=== PATIENT | female | born 1995 | race Caucasian/White ===

== ENCOUNTER 2019-11-19 08:28 | Emergency (ER) | payer OTHER ==
--- OUTSIDE RECORDS SUMMARY | 2019-11-19 08:43 | XMS REPORT | Continuity of Care Document ---
:1995 External Reference #:[id number] Author Name Donavon Magdaleno MD Address [address] [place] [address] Problems Active Problems Provider Date Left lower quadrant pain Donavon Magdaleno MD Onset: 11/16/2019 Deep pain on intercourse Donavon Magdaleno MD Onset: 11/16/2019 Social History Type Date Description Comments Sex Unknown Tobacco Use Start: Unknown Never Smoked Cigarettes ETOH Use Occasionally consumes alcohol Recreational Drug Use Denies Drug Use Tobacco Use Start: Unknown Patient has never smoked Smoking Status Reviewed: 11/16/19 Patient has never smoked Exercise Type/Frequency Exercises regularly Seat Belt/Car Seat Always uses seat belt Allergies, Adverse Reactions, Alerts Description No Known Drug Allergies Medications Active Medications SIG Qnty Indications Ordering Provider Date Nortrel 0.5/35 (28) by mouth every 3mo Po Hernandez JR, DO 09/05/2019 day 0.5-35mg-mcg Tablets Immunizations Description No Information Available Vital Signs Date Vital Result Comment 11/16/2019 3:33pm BP Systolic 140 mmHg BP Diastolic 98 mmHg Height 67 inches 5'7" Weight 137.00 lb BMI (Body Mass Index) 21.5 kg/m2 1 Parity 0 09/05/2019 8:22am BP Systolic 128 mmHg BP Diastolic 80 mmHg Height 67 inches 5'7" Weight 143.00 lb BMI (Body Mass Index) 22.4 kg/m2 Last Menstrual Period [id number] 1 Parity 0 Results Test Acquired Date Facility Test Result H/L Range Note Laboratory test 09/05/2019 [facility] Cytology SEE RESULT [address] [place] [address] BELOW [phone] 1 SEE RESULT BELOW Name: SENIA HERNANDEZ : [address]: Po Hernandez DO Acct: [id number] Unit: [id number] AGE: 24 Location: [facility] Re09/05/19 SEX: F Status: REG REF SPEC: [id number] JORGE: 09/05/1952 [facility] [address]: Po Hernandez DO REQ: [id number] RECD: 09/05/19 STATUS: SOUT _ ORDERED: TP IMAGE ANALYS COMMENTS: [id number] FINAL DIAGNOSIS Negative for Intraepithelial lesion or Malignancy SPECIMEN(S) RECEIVED A. Ectocervical/Endocervical CYTOLOGY ADEQUACY Specimen Adequacy: Satisfactory of evaluation Transformation zone component identified CYTOLOGY PATIENT INFORMATION Patient Information: HPV: Thin Layer Pap Test w/reflex to high risk HPV RNA testing when ASCUS Actual Specimen Date: 09/05/19 Last Menstrual Date: 08/06/19 Spec Date if unknown: 2014 Signed by and Reported on: ANANYA Howard (ASCP) 1458 This Pap test was evaluated with the assistance of the DoubleVerifyp Test Imaging System. Due to cytologic findings at the car distributor microscope, comprehensive manual rescreening by a Briquette Maker may be required. The Pap Smear is a screening test designed to aid in the detection of premalignant and malignant conditions of the uterine cervix. It is not a diagnostic procedure and should not be used as the sole means of detecting cervical cancer. Both false- positive and false- negative reports do occur. Depending on your risk status, a Pap smear should be obtained and evaluated every 1-3 years. END OF REPORT DEPARTMENT OF PATHOLOGY, [address] [place] [address] Duy Zuniga M.D. 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 Functional Status Description No Information Available Mental Status Description No Information Available Referrals Description No Information Available
[2019-11-19 08:56] VITALS: BP 124/78
--- NOTE | 2019-11-19 09:11 | UC ---
Lower Extremity/Ankle HPI - HPI Summary HPI Summary: 24-year-old woman comes in with a chief complaint of left ankle foot pain. Yesterday while she was running 2 pole vault on one step she had sudden onset of pain in the medial aspect of the left ankle and foot. Pain continues and it' s primarily in the medial aspect in the area of the navicular bone. Weightbearing makes it worse. She has been using eyes anti-inflammatories without overall relief. She has had multiple ankle sprains in the past. - History of Current Complaint Chief Complaint: UCLowerExtremity Stated Complaint: LEFT FOOT INJURY Time Seen by Provider: 11/19/19 08:51 Hx Last Menstrual Period: does not have reg periods, last one was 08/21 Pain Intensity: 7 - Allergies/Home Medications Allergies/Adverse Reactions: Allergies Allergy/AdvReac Type Severity Reaction Status Date / Time MS Gluten Meal [Gluten Meal] Allergy Intermediate reaction Verified 09/14/17 10: 38 varies gluten Allergy Unknown GI Upset Verified 11/19/19 08:47 Home Medications: Home Medications Ibuprofen TAB* [Advil TAB*] 400 mg PO Q6H PRN 11/19/19 [History Confirmed ] Norethindrone-Ethinyl Estrad [Nortrel 0.5/35 (28) 0.5-35 mg-Mcg] 1 tab PO DAILY 11/19/19 [History Confirmed 11/19/19] PMH/Surg Hx/FS Hx/Imm Hx Previously Healthy: Yes - Surgical History Surgical History: None - Family History Known Family History: Positive: Non-Contributory - Social History Alcohol Use: Occasionally Substance Use Type: None Smoking Status (MU): Never Smoked Tobacco Review of Systems All Other Systems Reviewed And Are Negative: Yes Constitutional: Positive: Negative Skin: Positive: Negative Eyes: Positive: Negative ENT: Positive: Negative Respiratory: Positive: Negative Cardiovascular: Positive: Negative Gastrointestinal: Positive: Negative Motor: Positive: Negative Neurovascular: Positive: Negative Musculoskeletal: Positive: Other: - see hpi Neurological/Mental Status: Positive: Negative Psychological: Positive: Negative Is Patient Immunocompromised?: No Physical Exam Triage Information Reviewed: Yes Appearance: Well-Appearing, No Pain Distress, Well-Nourished Vital Signs: Initial Vital Signs Temp 98.1 F 11/19/19 08:49 Pulse 66 02/17/20 08:49 Resp 16 11/19/19 08:49 BP 124/78 11/19/19 08:49 Pulse Ox 100 11/19/19 08:49 Vital Signs Reviewed: Yes Eye Exam: Normal Eyes: Positive: Conjunctiva Clear Neck: Positive: Supple Respiratory: Positive: No respiratory distress Musculoskeletal: Positive: Other: - Patient is tender to palpation medial aspect of the left midfoot. Lateral malleolus is nontender to palpation Achilles tendon is intact and nontender to palpation. Normal capillary refill. Normal sensation. There is a firm prominence over the navicular bone. Neurological: Positive: Alert Psychological: Positive: Age Appropriate Behavior Skin Exam: Normal Lower Extremity Course/Dx - Course Course Of Treatment: Machine Operator Transplanter: Katey Ward S, ([id number]) Director Vaccine: JUAN CARLOS (JUAN CARLOS) Report Date: 11/19/2019 09:44:00 Report Status: Final Start of Report Content Patient Name: CAMI HERNANDEZ Medical Record#: [id number] Ordering Physician: Jaden Felton MD Acct.#: [id number] : Age: 24 Sex: F Location: [facility] Exam Date: 11/19/19 0904 ADM Status: REG ER Order Information: FOOT LEFT 3+ VWS Accession Number: [id number] CPT: 79147 Indication: Left foot pain. 3 views of left foot demonstrates no fracture or dislocation. No other bone or joint abnormality is identified. IMPRESSION: No fracture of left foot is noted. <Electronically signed by Katey Ward MD in OV> 11/19/19940 Dictated By: Katey Ward MD Dictated Date/Time: 931 Transcribed Date/Time: 11/19/19931 Copy to: CC:No Primary Care Phys, NOPCP ; Jaden Felton MD Imaging - [facility] [id number] [place] [id number] [place] [address] ph ([phone]) ph ([phone]) ph ([phone]) ==== End of Report Content Machine Operator Transplanter: Katey Ward S, ([id number]) Director Vaccine: JUAN CARLOS, (NUANCE) Report Date: 11/19/2019 09:36:00 Report Status: Final Start of Report Content Patient Name: CAMI HERNANDEZ Medical Record#: [id number] Ordering Physician: Jaden Felton MD Acct.#: [id number] : Age: 24 Sex: F Location: [facility] Exam Date: 11/19/19903 ADM Status: REG ER Order Information: ANKLE LEFT 3+VWS Accession Number: [id number] CPT: 21253 Indication: Left ankle pain. 3 views of the left ankle demonstrates degenerative changes of the talocrural joint. No fracture is noted. No soft tissue swelling is noted. IMPRESSION: No fracture is noted. <Electronically signed by Katey Ward MD in OV> 11/19/19931 Dictated By: Katey Ward MD Dictated Date /Time: 11/19/19929 Transcribed Date/Time: 11/19/19929 Copy to: CC:No Primary Care Phys,NOPCP ; Jaden Felton MD Imaging - [facility] Imaging - [facility] Imaging - [facility] [address] [address] ph ([phone]) ph ([phone]) ph ([phone]) End of Report Content I discussed the x-rays with the patient. No fracture seen. I recommended ice anti-inflammatories and to minimize weightbearing. If not completely improved follow-up with orthopedics. I discussed the use of a cam boot if needed. Patient needed to leave clinic to get to work on time and did not receive any Logan wrap or cam boot here in our clinic. - Differential Dx/Diagnosis Provider Diagnosis: Sprain of left foot, Left ankle sprain Discharge ED - Sign-Out/Discharge Documenting (check all that apply): Patient Departure All imaging exams completed and their final reports reviewed: Yes - Discharge Plan Condition: Stable Disposition: HOME Patient Education Materials: Foot Sprain (ED), Ankle Sprain (ED) Referrals: Garth Parker MD [Medical Doctor] - [facility] [Provider Group] Additional Instructions: No fracture was seen on your left ankle and foot x-rays. He can protect the area and support it with an Logan wrap. Consider using a walking boot if helpful. Try to decrease weightbearing to level of comfort. Ice the area and elevate it. Use an anti-inflammatory. If not completely improved follow-up with orthopedics or sports medicine. - Billing Disposition and Condition Condition: STABLE Disposition: Home
== END 2019-11-19 09:50 | disposition home or self-care (01) ==
LOC: UCCORT 08:28
DX: S93.602A Unspecified sprain of left foot, initial encounter (principal); Z91.018 Allergy to other foods; X58.XXXA Exposure to other specified factors, initial encounter; Y93.02 Activity, running; Y92.9 Unspecified place or not applicable
CPT/HCPCS: 84702; 99211; G0463

== ENCOUNTER 2024-04-27 01:38 | Inpatient (IN) ==
[2024-04-27] MEDS ORDERED: Lidocaine 1% VIAL 10 MG/ML 30 ML VIAL INJ PRN (01:55)
[2024-04-27] MEDS ORDERED: Buffered Lidocaine 1% SYRIN 1 ml INTRADERM ONE (01:55)
[2024-04-27 02:47] LABS: ABS Basophils 0.1 10^3/uL (0.0-0.1); ABS Eosinophils 0.1 10^3/uL (0.0-0.5); ABS Lymphocytes 2.2 10^3/uL (1.0-4.8); ABS Monocytes 0.8 10^3/uL (0.0-0.9); ABS Neutrophils 8.9 10^3/uL (1.5-7.6); Eosinophil % 0.7 %; Hematocrit 39.4 % (35-45); Hemoglobin 13.6 g/dL (11.5-14.3); Lymphocyte % 18.5 %; Mean Corpuscular Hemoglobin 30.9 pg (27-33); Mean Corpuscular Hgb Conc 34.6 g/dL (31-36); Mean Corpuscular Volume 89.5 fL (80-97); Mean Platelet Volume 8.2 fL (7.5-11.2); Platelet Count 191 10^3/uL (150-450); Red Cell Distribution Width 13.2 % (12-17)
[2024-04-27] MEDS: Prochlorperazine 5 mg/ml 2 ml VIAL (10 mg) IV PRN (02:54)
[2024-04-27 03:08] LABS: Urine Benzodiazepine Screen None Detected (None Detect); Urine Cannabinoids Screen None Detected (None Detect); Urine Opiates Screen None Detected (None Detect)
[2024-04-27] MEDS: Lactated Ringers 1000 ml BAG 1,000 ML IV ONE (09:38)
[2024-04-27] MEDS: Lactated Ringers 1000 ml BAG 1,000 ML IV SCH (10:14)
[2024-04-27] MEDS: OBEPIDURAL (200 ML) 200 ML EPIDURAL ONE (10:14)
[2024-04-27] MEDS: Lidocaine 1.5% EPI 1:200,000 30 ML SDV ONE (10:18)
[2024-04-27] MEDS ORDERED: Phenylephrine 40 mcg/mL 10mL (400mcg) SYRINGE IV PUSH PRN ×2 (11:18)
[2024-04-27] MEDS ORDERED: Lactated Ringers 1000 ml BAG 1,000 ML IV ONE (11:18)
[2024-04-27] MEDS ORDERED: Lactated Ringers 1000 ml BAG 1,000 ML IV SCH ×2 (12:00→17:00)
[2024-04-27 12:04] LABS: Urine Appearance Clear; Urine Bilirubin Negative (Negative); Urine Blood Negative (Negative); Urine Color Yellow; Urine Ketones Negative (Negative); Urine Nitrite Negative (Negative); Urine Protein Negative (Negative); Urine Specific Gravity 1.015 (1.005-1.030); Urine Urobilinogen 0.2 (Negative) (Negative); Urine pH 7.5 (5.0-8.0)
[2024-04-27] MEDS: ceFOXitin 2 GM IVPREMIX 2 GM/50 ML BAG IVPB ONE (14:22)
[2024-04-27] MEDS: Sodium Citrate/Citric Acid LIQ 15 ML UDC PO PRN (14:22)
[2024-04-27] MEDS ORDERED: Chloroprocaine 3% 20 ml VIAL ONE (14:39)
[2024-04-27] MEDS ORDERED: Oxytocin 10 UNITS/ML 1 ML VIAL ONE (14:40)
[2024-04-27] MEDS ORDERED: Ondansetron 4 mg VIAL 2 MG/ML 2 ml VIAL ONE (14:53)
[2024-04-27] MEDS ORDERED: Bupivacaine 0.5% SDV PF 30ML VIAL ONE (14:56)
[2024-04-27] MEDS ORDERED: Morphine PF AMP (0.5MG/ML) 5 MG/10 ML AMP ONE (15:25)
[2024-04-27] MEDS ORDERED: Acetaminophen IV 1 GM/100ML 1,000 MG/100 ML BAG IV ONE (15:25)
[2024-04-27] MEDS ORDERED: Ondansetron 4 mg VIAL 2 MG/ML 2 ml VIAL IV PRN (15:38)
[2024-04-27] MEDS ORDERED: Naloxone 0.4 mg VIAL 0.4 mg/ml 1 ml VIAL IV PUSH PRN (15:38)
[2024-04-27] MEDS ORDERED: Acetaminophen IV 1 GM/100ML 1,000 MG/100 ML BAG IV PRN (15:38)
[2024-04-27] MEDS ORDERED: Naloxone 0.4 mg VIAL 0.4 mg/ml 1 ml VIAL IV PRN (15:40)
[2024-04-27] MEDS ORDERED: Glycerin ADULT 2.4 gm SUPP PR PRN (16:05)
[2024-04-27] MEDS ORDERED: Witch Hazel PAD JAR TOPICAL PRN (16:05)
[2024-04-27] MEDS ORDERED: Dibucaine 1% OINT 28.35 GM TUBE PR PRN (16:05)
[2024-04-27] MEDS: Oxytocin in LR 20,000 MILLI.UNIT/1,000 ML BAG IV SCH (20:43)
[2024-04-28] MEDS: OBEPIDURAL (200 ML) 200 ML EPIDURAL SCH (06:15)
[2024-04-28] MEDS: Oxytocin in LR 20,000 MILLI.UNIT/1,000 ML BAG IV SCH (06:16)
[2024-04-28 07:06] LABS: ABS Basophils 0.1 10^3/uL (0.0-0.1); ABS Eosinophils 0.1 10^3/uL (0.0-0.5); ABS Lymphocytes 1.4 10^3/uL (1.0-4.8); ABS Nucleated RBC 0.01 10^3/ul; Eosinophil % 0.5 %; Hematocrit 36.1 % (35-45); Hemoglobin 12.4 g/dL (11.5-14.3); Lymphocyte % 10.2 %; Mean Corpuscular Hemoglobin 31.1 pg (27-33); Mean Corpuscular Hgb Conc 34.3 g/dL (31-36); Mean Corpuscular Volume 90.4 fL (80-97); Mean Platelet Volume 7.7 fL (7.5-11.2); Platelet Count 171 10^3/uL (150-450); Red Blood Count 3.99 10^6/uL (3.63-4.92); Red Cell Distribution Width 13.7 % (12-17); White Blood Count 13.5 10^3/uL (3.8-11.8)
[2024-04-30 08:10] VITALS: BP 122/63
== END 2024-04-30 13:30 | disposition home or self-care (01) | DRG 540 ==
LOC: MCHOBOUT 01:38 → MCHOB 01:48
PROVIDERS: ADMIT Advanced Practice Midwife; ATTEND Obstetrics & Gynecology